=== PATIENT | female | born 1975 | race African-American/Black ===

== ENCOUNTER 2017-09-26 05:21 | Inpatient (IN) | payer BC ==
[~2017-09-26] VITALS: Ht 165.1 cm; Wt 64.0 kg
[2017-09-26] MEDS ORDERED: LACTATED RINGERS 1,000 ML IV SCH ×2 (05:44→06:00)
[2017-09-26] MEDS ORDERED: OXYTOCIN 30U/ 0.9% NaCL 500ML 500 ML IV SCH (05:44)
[2017-09-26 06:00] LABS: HEMATOCRIT 38.6 % (34.6-47.8); HEMOGLOBIN 12.8 g/dL (11.7-16.4); WHITE BLOOD COUNT 7.4 x10^3/uL (3.4-10)
[2017-09-26] MEDS ORDERED: METOCLOPRAMIDE 5 MG/ML, 2ML IV ONE (06:00)
[2017-09-26] MEDS ORDERED: LACTATED RINGERS 1,000 ML IVBOLUS ONE (06:00)
[2017-09-26] MEDS ORDERED: SODIUM CITRATE/CITRIC ACID 30 ML UDC PO ONE (06:00)
[2017-09-26] MEDS ORDERED: METOCLOPRAMIDE 5 MG/ML, 2ML ONE (06:35)
[2017-09-26] MEDS ORDERED: SODIUM CITRATE/CITRIC ACID 30 ML UDC ONE (06:35)
[2017-09-26] MEDS ORDERED: CEFAZOLIN 1,000 MG ONE ×2 (07:18)
[2017-09-26] MEDS ORDERED: OXYTOCIN 10 UNITS/ML, 1ML ONE ×3 (07:19)
[2017-09-26] MEDS ORDERED: ONDANSETRON 2MG/ML, 2ML IVPush PRN (07:30)
[2017-09-26] MEDS ORDERED: FENTANYL PF 100 MCG/2ML IV PRN (07:30)
[2017-09-26] MEDS ORDERED: morphine SULFATE 10 MG/ML, 1ML IV PRN (07:30)
[2017-09-26] MEDS ORDERED: EPHEDRINE 50 MG/ML, 1ML IVPush PRN (07:30)
[2017-09-26] MEDS ORDERED: MEPERIDINE/PF 25MG/0.5ML IVPush PRN (07:30)
[2017-09-26] MEDS ORDERED: OXYcodone 5 MG/5 ML ORAL.SOL UDC PO PRN (07:30)
[2017-09-26] MEDS ORDERED: EPHEDRINE 50 MG/ML, 1ML ONE (08:16)
[2017-09-26] MEDS ORDERED: MEPERIDINE/PF 50 MG/ML ONE (08:30)
[2017-09-26] MEDS ORDERED: KETOROLAC 30 MG/1 ML ONE (09:18)
[2017-09-26] MEDS ORDERED: OXYcodone 5 MG/5 ML ORAL.SOL UDC ONE (09:28)
[2017-09-26] MEDS: LACTATED RINGERS 1,000 ML IV SCH ×3 (09:31→19:31)
[2017-09-26] MEDS: OXYTOCIN 30U/ 0.9% NaCL 500ML 500 ML IV SCH ×2 (09:31→19:31)
[2017-09-26] MEDS ORDERED: OXYTOCIN 30U/ 0.9% NaCL 500ML 500 ML ONE (09:53)
[2017-09-26] MEDS ORDERED: MISOPROSTOL 200 MCG TABLET PR PRN (10:00)
[2017-09-26] MEDS ORDERED: ONDANSETRON 2MG/ML, 2ML IV PRN (10:00)
[2017-09-26] MEDS ORDERED: METHYLERGONOVINE 0.2 MG/ML IM PRN (10:00)
[2017-09-26] MEDS: PRENATAL VIT/IRON/FA 1 EACH TABLET PO SCH (10:00)
[2017-09-26] MEDS ORDERED: GLYCERIN ADULT SUPP PR PRN (10:00)
[2017-09-26] MEDS ORDERED: CALCIUM CARBONATE 500 MG TAB.CHEW PO PRN (10:00)
[2017-09-26] MEDS ORDERED: morphine SULFATE 10 MG/ML, 1ML IVPush PRN ×2 (10:00)
[2017-09-26] MEDS ORDERED: MORPHINE SULFATE 4 MG/ML, 1ML ONE (10:51)
[2017-09-26 11:25] VITALS: BP 116/73
[2017-09-26] MEDS: OXYcodone/APAP 5/325MG TABLET PO PRN ×2 (13:36→18:20)
[2017-09-26] MEDS: KETOROLAC 30 MG/1 ML IV SCH ×2 (15:44→21:45)
[2017-09-26 15:45] VITALS: BP 118/81
[2017-09-26 17:03] LABS: HEMATOCRIT 34.3 % (34.6-47.8); HEMOGLOBIN 11.4 g/dL (11.7-16.4); WHITE BLOOD COUNT 10.4 x10^3/uL (3.4-10)
[2017-09-26 20:15] VITALS: BP 126/83
[2017-09-27 00:45] VITALS: BP 105/77
[2017-09-27] MEDS: OXYcodone/APAP 5/325MG TABLET PO PRN ×4 (01:02→20:33)
[2017-09-27] MEDS: LACTATED RINGERS 1,000 ML IV SCH ×5 (01:31→05:49)
[2017-09-27] MEDS: KETOROLAC 30 MG/1 ML IV SCH (03:48)
[2017-09-27 05:00] VITALS: BP 108/75
[2017-09-27] MEDS: OXYTOCIN 30U/ 0.9% NaCL 500ML 500 ML IV SCH ×2 (05:31→05:47)
[2017-09-27 06:30] VITALS: BP 110/78
[2017-09-27] MEDS: PRENATAL VIT/IRON/FA 1 EACH TABLET PO SCH (08:02)
[2017-09-27] MEDS: DOCUSATE 100 MG CAPSULE PO PRN ×2 (08:02→20:33)
[2017-09-27] MEDS: IBUPROFEN 600 MG TABLET PO PRN ×3 (10:22→22:41)
[2017-09-27 20:08] VITALS: BP 114/76
[2017-09-28] MEDS: OXYcodone/APAP 5/325MG TABLET PO PRN ×3 (03:24→17:39)
[2017-09-28] MEDS: IBUPROFEN 600 MG TABLET PO PRN ×2 (05:41→17:40)
[2017-09-28] MEDS: PRENATAL VIT/IRON/FA 1 EACH TABLET PO SCH (08:00)
[2017-09-28] MEDS: DOCUSATE 100 MG CAPSULE PO PRN (08:00)
[2017-09-28 08:35] VITALS: BP 123/81
[2017-09-28] MEDS: LACTATED RINGERS 1,000 ML IV SCH ×4 (09:31→21:31)
[2017-09-28] MEDS: OXYTOCIN 30U/ 0.9% NaCL 500ML 500 ML IV SCH ×2 (11:31→21:31)
[2017-09-28] MEDS: SIMETHICONE 80 MG CHEW TAB PO PRN (17:39)
[2017-09-28 20:00] VITALS: BP 121/87
[2017-09-29] MEDS: IBUPROFEN 600 MG TABLET PO PRN ×3 (00:39→14:15)
[2017-09-29] MEDS: DOCUSATE 100 MG CAPSULE PO PRN ×2 (00:39→07:40)
[2017-09-29] MEDS: OXYcodone/APAP 5/325MG TABLET PO PRN ×3 (00:39→12:59)
[2017-09-29 00:45] VITALS: BP 118/86
[2017-09-29] MEDS: LACTATED RINGERS 1,000 ML IV SCH ×3 (01:31→07:12)
[2017-09-29] MEDS: OXYTOCIN 30U/ 0.9% NaCL 500ML 500 ML IV SCH (07:12)
[2017-09-29] MEDS: PRENATAL VIT/IRON/FA 1 EACH TABLET PO SCH (07:39)
[2017-09-29] MEDS: SIMETHICONE 80 MG CHEW TAB PO PRN (07:45)
[2017-09-29 07:47] VITALS: BP 117/77
[2017-09-29] MEDS ORDERED: DOCU-131 PO (13:25)
[2017-09-29] MEDS ORDERED: OXYC-302 PO (13:25)
[2017-09-29] MEDS ORDERED: IBUP-1222 PO (13:26)
== END 2017-09-29 15:02 | disposition home or self-care (01) | DRG 766 ==
LOC: LDIP 05:21 → 2NW 11:30
PROVIDERS: ADMIT Obstetrics & Gynecology; ATTEND Obstetrics & Gynecology
PROC: 10D00Z1 Extraction of Products of Conception, Low, Open Approach (ICD-10-PCS; principal; 2017-09-26)
DX: O34.211 Maternal care for low transverse scar from previous cesarean delivery (principal); K66.0 Peritoneal adhesions (postprocedural) (postinfection); O99.89 Other specified diseases and conditions complicating pregnancy, childbirth and the puerperium; Q99.9 Chromosomal abnormality, unspecified; Z3A.39 39 weeks gestation of pregnancy; Z37.0 Single live birth; O09.523 Supervision of elderly multigravida, third trimester
CPT/HCPCS: 36415; 85025; 86850; 86900; J0690; J1885; J2175; J2405; J2270; J2590; J2765; J7120

== ENCOUNTER 2017-10-03 22:12 | Inpatient (IN) | payer BC ==
[~2017-10-03] VITALS: Ht 165.1 cm; Wt 61.4 kg
[~2017-10-03 22:12] MED LIST: DOCU-131 PO; IBUP-1222 PO; OXYC-302 PO
[2017-10-03] MEDS ORDERED: LACTATED RINGERS 1,000 ML IV SCH ×2 (22:30)
[2017-10-03] MEDS ORDERED: LACTATED RINGERS 1,000 ML IV PRN (22:42)
[2017-10-03] MEDS ORDERED: MAGNESIUM SULFATE PMX 4GM/100M 100 ML ONE (22:47)
[2017-10-03] MEDS ORDERED: MAGNESIUM SULF. PMX 20GM/500ML 500 ML IV ONE (22:47)
[2017-10-03] MEDS ORDERED: MAGNESIUM SULFATE PMX 4GM/100M 100 ML IVPB ONE (23:00)
[2017-10-03] MEDS: MAGNESIUM SULF. PMX 20GM/500ML 500 ML IV SCH (23:16)
[2017-10-03] MEDS ORDERED: CEFAZOLIN PMX 2GM/50ML 50 ML IVPB ONE (23:30)
[2017-10-04] MEDS ORDERED: SILVER NITRATE STICK TP ONE (01:30)
[2017-10-04] MEDS: NITROFURANTOIN (MACROBID) 100 MG CAPSULE PO SCH ×3 (09:00→22:25)
[2017-10-04] MEDS ORDERED: MAGNESIUM SULF. PMX 20GM/500ML 500 ML IV ONE (10:28)
[2017-10-04] MEDS ORDERED: NITROFURANTOIN (MACROBID) 100 MG CAPSULE ONE ×4 (11:22→22:18)
[2017-10-04] MEDS: MAGNESIUM SULF. PMX 20GM/500ML 500 ML IV SCH (11:27)
[2017-10-04] MEDS ORDERED: CALCIUM GLUCONATE 4.6 MEQ/10 ML IV PRN (13:00)
[2017-10-04] MEDS ORDERED: OXYcodone/APAP 5/325MG TABLET ONE ×2 (13:49→22:18)
[2017-10-04] MEDS ORDERED: OXYcodone/APAP 5/325MG TABLET PO PRN ×2 (14:00)
[2017-10-04] MEDS ORDERED: ONDANSETRON 2MG/ML, 2ML ONE (16:56)
[2017-10-04] MEDS ORDERED: ONDANSETRON 2MG/ML, 2ML IVPush PRN (17:00)
[2017-10-04] MEDS ORDERED: LABETALOL 100 MG TABLET ONE (20:15)
[2017-10-04] MEDS: LABETALOL 100 MG TABLET PO SCH (20:19)
[2017-10-05] MEDS ORDERED: LABETALOL 100 MG TABLET ONE (08:23)
[2017-10-05] MEDS ORDERED: NITROFURANTOIN (MACROBID) 100 MG CAPSULE ONE (08:23)
[2017-10-05] MEDS: LABETALOL 100 MG TABLET PO SCH (08:31)
[2017-10-05] MEDS: NITROFURANTOIN (MACROBID) 100 MG CAPSULE PO SCH (08:32)
== END 2017-10-05 08:50 | disposition home or self-care (01) | DRG 776 ==
LOC: LDIP 22:12
PROVIDERS: ADMIT Obstetrics & Gynecology; ATTEND Obstetrics & Gynecology
DX: O86.20 Urinary tract infection following delivery, unspecified (principal); O14.95 Unspecified pre-eclampsia, complicating the puerperium
CPT/HCPCS: 36415; 83735; J0690; J2405; J3475; J7120